=== PATIENT | female | born 1990 | race Caucasian/White ===

== ENCOUNTER 2016-07-06 17:51 | Emergency (ER) | payer OTHER ==
[~2016-07-06] VITALS: Ht 172.7 cm; Wt 83.9 kg
[~2016-07-06 17:51] MED LIST: AMOXICILLIN500 MG PO; BACTRIM DS 8001 TA1 PO; FLEXERIL5 MG PO; MOTRIN800 MG PO; Motrin,Rufen800 MG PO; NAPROSYN500 MG PO; NKHM; NORCO 325 MG-51 TAB PO; OMNICEF300 MG PO; PERCOCET 325 MG1 TA7 PO; PHENERGAN25 MG RC; PREDNISONE20 MG PO; ROBITUSSIN AC 110 ML PO; TRAMADOL HCL50 MG PO; VICODIN 5/500 505 MG PO; ZITHROMAX250 MG PO; ZYRTEC10 MG PO; [UNRECOGNIZED DRUG - CODE] IU
[2016-07-06 18:25] LABS: BASO # 0.1 10*3/uL (0.0-0.1); BASO % 0.6 % (0.0-1.0); EOS # 0.3 10*3/uL (0.0-0.4); EOS % 3.3 % (1.0-4.0); HEMATOCRIT 39.1 % (37.0-47.0); HEMOGLOBIN 12.7 g/dl (12.0-16.0); IG # 0.1 10*3/uL (0.0-0.1); LYMPH # 2.3 10*3/uL (1.3-4.4); MEAN CELL VOLUME 89.1 fl (81.0-99.0); MEAN CORPUSCULAR HGB 28.9 pg (27.0-31.0); MEAN CORPUSCULAR HGB CONC 32.5 g/dl (33.0-37.0); MONO # 0.5 10*3/uL (0.1-1.0); MONO % 5.4 % (3.0-9.0); NEUT # 5.6 10*3/uL (2.3-7.9); NEUT % 63.9 % (47.0-73.0); PLATELET COUNT AUTOMATED 298 10*3/uL (130-400); RED BLOOD COUNT 4.39 10*6/uL (4.10-5.10); RED CELL DISTRI WIDTH 13.2 % (0-14.5); WHITE BLOOD COUNT 8.8 10*3/uL (4.8-10.8)
[2016-07-06 18:37] LABS: BILIRUBIN NEGATIVE (NEGATIVE); BLOOD TRACE-LYSED (NEGATIVE); CLARITY CLEAR (CLEAR); COLOR YELLOW (YELLOW); GLUCOSE NEGATIVE (NEGATIVE); KETONE NEGATIVE (NEGATIVE); LEUKO ESTERASE NEGATIVE (NEGATIVE); NITRITE NEGATIVE (NEGATIVE); PH 6.5 (5.0-9.0); PROTEIN NEGATIVE (NEGATIVE); SPECIFIC GRAVITY 1.025 (1.005-1.030)
[2016-07-06 18:39] LABS: ALBUMIN 3.5 gm/dl (3.1-4.5); ALKALINE PHOSPHATASE 88 U/L (45-117); BILIRUBIN, TOTAL 0.3 mg/dl (0.2-1.0); BUN 15 mg/dl (7-24); CARBON DIOXIDE 26 mmol/L (21-32); CHLORIDE 106 mmol/L (98-107); EST GLOM FILT AFRICAN AMERICAN > 60 ml/min; GLUCOSE 87 mg/dL (65-99); POTASSIUM 4.1 mmol/L (3.5-5.1); SGOT/AST 17 IU/L (3-35); SGPT/ALT 25 U/L (12-78); SODIUM 142 mmol/L (136-145); TOTAL PROTEIN 7.8 gm/dL (6.4-8.2)
[2016-07-06 18:49] LABS: BACTERIA 1+; EPITHELIAL CELLS 30-35; URINE REFLEX COMMENT YES (NO); WBC 0-2 wbc/hpf (0-5)
[2016-07-06] MEDS ORDERED: NAPROSYN500 MG PO (18:52)
== END 2016-07-06 19:09 | disposition home or self-care (01) ==
LOC: ED 17:51
PROVIDERS: Nurse Practitioner Family
DX: R10.30 Lower abdominal pain, unspecified (principal)

== ENCOUNTER 2016-08-15 21:36 | Emergency (ER) | payer OTHER ==
[~2016-08-15] VITALS: Ht 172.7 cm; Wt 97.5 kg
== END 2016-08-15 23:40 | disposition home or self-care (01) ==
LOC: ED 21:36
DX: S93.402A Sprain of unspecified ligament of left ankle, initial encounter (principal); M25.571 Pain in right ankle and joints of right foot; W18.39XA Other fall on same level, initial encounter; Y93.9 Activity, unspecified; Y92.9 Unspecified place or not applicable; Y99.9 Unspecified external cause status

== ENCOUNTER 2017-03-04 18:17 | Emergency (ER) | payer OTHER ==
[~2017-03-04] VITALS: Ht 172.7 cm; Wt 94.8 kg
[2017-03-04 18:58] LABS: BASO # 0.1 10*3/uL (0.0-0.1); BASO % 0.6 % (0.0-1.0); EOS # 0.3 10*3/uL (0.0-0.4); EOS % 3.2 % (1.0-4.0); HEMATOCRIT 36.3 % (37.0-47.0); HEMOGLOBIN 10.4 g/dl (12.0-16.0); LYMPH # 2.9 10*3/uL (1.3-4.4); LYMPH % 30.9 % (27.0-41.0); MEAN CELL VOLUME 75.2 fl (81.0-99.0); MEAN CORPUSCULAR HGB 21.5 pg (27.0-31.0); MEAN CORPUSCULAR HGB CONC 28.7 g/dl (33.0-37.0); MEAN PLATELET VOLUME 10.7 fl (9.6-12.3); MONO # 0.4 10*3/uL (0.1-1.0); MONO % 3.9 % (3.0-9.0); NEUT # 5.6 10*3/uL (2.3-7.9); NEUT % 60.3 % (47.0-73.0); PLATELET COUNT AUTOMATED 372 10*3/uL (130-400); RED BLOOD COUNT 4.83 10*6/uL (4.10-5.10); RED CELL DISTRI WIDTH 17.8 % (0-14.5); WHITE BLOOD COUNT 9.3 10*3/uL (4.8-10.8)
[2017-03-04 19:08] LABS: ACT PARTIAL THROMBO TIME 22.9 SECONDS (20.8-31.5); INTERNATIONAL NORM RATIO 0.9 (2.0-3.5)
[2017-03-04 19:15] LABS: ALBUMIN 3.7 gm/dl (3.1-4.5); ALKALINE PHOSPHATASE 116 U/L (45-117); BUN 11 mg/dl (7-24); CHLORIDE 104 mmol/L (98-107); CREATININE 0.86 mg/dL (0.55-1.02); POTASSIUM 3.9 mmol/L (3.5-5.1); SGOT/AST 11 IU/L (3-35); SGPT/ALT 24 U/L (12-78); SODIUM 136 mmol/L (136-145); TOTAL PROTEIN 8.4 gm/dL (6.4-8.2)
[2017-03-04 19:19] LABS: TROPONIN I < 0.015 ng/ml (<0.045)
[2017-03-04] MEDS ORDERED: NAPROSYN500 MG PO (21:05)
== END 2017-03-04 23:39 | disposition home or self-care (01) ==
LOC: ED 18:17
PROVIDERS: Emergency Medicine
DX: R07.9 Chest pain, unspecified (principal); F17.200 Nicotine dependence, unspecified, uncomplicated

== ENCOUNTER 2017-12-10 22:22 | Emergency (ER) | payer OTHER ==
[~2017-12-10] VITALS: Ht 172.7 cm; Wt 111.6 kg
[2017-12-10] MEDS ORDERED: SEROQUEL25 MG PO (22:27)
[2017-12-10] MEDS ORDERED: PROZAC10 MG PO (22:27)
[2017-12-10] MEDS ORDERED: Motrin,Rufen800 MG PO (23:55)
== END 2017-12-11 00:12 | disposition home or self-care (01) ==
LOC: ED 22:22
DX: S20.212A Contusion of left front wall of thorax, initial encounter (principal); F17.200 Nicotine dependence, unspecified, uncomplicated; Z79.899 Other long term (current) drug therapy; Y04.2XXA Assault by strike against or bumped into by another person, initial encounter; Y93.89 Activity, other specified; Y92.89 Other specified places as the place of occurrence of the external cause; Y99.8 Other external cause status

== ENCOUNTER → 2018-03-08 | Outpatient (CLI) | payer OTHER ==
[~2018-03-08] MED LIST changes: +PROZAC10 MG PO; +SEROQUEL25 MG PO
== END | disposition home or self-care (01) ==
LOC: US 13:56
DX: N93.9 Abnormal uterine and vaginal bleeding, unspecified (principal)

== ENCOUNTER 2018-07-27 09:32 | Emergency (ER) | payer OTHER ==
[~2018-07-27] VITALS: Ht 172.7 cm; Wt 95.3 kg
== END 2018-07-27 09:51 | disposition home or self-care (01) ==
LOC: ED 09:32
DX: Z32.02 Encounter for pregnancy test, result negative (principal); Z79.899 Other long term (current) drug therapy

== ENCOUNTER 2018-09-28 23:02 | Emergency (ER) | payer OTHER ==
[~2018-09-28] VITALS: Ht 172.7 cm; Wt 108.9 kg
[2018-09-28] MEDS ORDERED: PREDNISONE20 M1 PO (23:06)
== END 2018-09-28 23:25 | disposition hospice, home (50) ==
LOC: ED 23:02
DX: L23.7 Allergic contact dermatitis due to plants, except food (principal); Z79.899 Other long term (current) drug therapy

== ENCOUNTER 2018-12-03 06:58 | Emergency (ER) | payer OTHER ==
[~2018-12-03] VITALS: Ht 172.7 cm; Wt 104.8 kg
[~2018-12-03 06:58] MED LIST changes: +PREDNISONE20 M1 PO
[2018-12-03] MEDS ORDERED: CYCLOBENZAPRINE10 MG PO (08:22)
[2018-12-03] MEDS ORDERED: PREDNISONE50 MG PO (08:22)
[2018-12-03] MEDS ORDERED: NORCO 5-325 TA1 EACH PO (08:22)
== END 2018-12-03 08:25 | disposition home or self-care (01) ==
LOC: ED 06:58
DX: S39.012A Strain of muscle, fascia and tendon of lower back, initial encounter (principal); Z79.899 Other long term (current) drug therapy; X58.XXXA Exposure to other specified factors, initial encounter; Y93.89 Activity, other specified; Y92.89 Other specified places as the place of occurrence of the external cause; Y99.0 Civilian activity done for income or pay

== ENCOUNTER 2018-12-22 12:42 | Emergency (ER) | payer OTHER ==
[~2018-12-22] VITALS: Ht 172.7 cm; Wt 114.8 kg
[~2018-12-22 12:42] MED LIST changes: +CYCLOBENZAPRINE10 MG PO; +NORCO 5-325 TA1 EACH PO; +PREDNISONE50 MG PO
[2018-12-22] MEDS ORDERED: CEPHALEXIN500 M1 PO (13:07)
[2018-12-22] MEDS ORDERED: NAPROSYN500 MG PO (13:07)
== END 2018-12-22 13:17 | disposition home or self-care (01) ==
LOC: ED 12:42
DX: L02.415 Cutaneous abscess of right lower limb (principal); Z79.899 Other long term (current) drug therapy

== ENCOUNTER 2019-02-24 23:02 | Emergency (ER) | payer OTHER ==
[~2019-02-24] VITALS: Ht 172.7 cm; Wt 101.6 kg
[~2019-02-24 23:02] MED LIST changes: +CEPHALEXIN500 M1 PO
[2019-02-25] MEDS ORDERED: CYCLOBENZAPRINE5 M3 PO (01:11)
[2019-02-25] MEDS ORDERED: MEDROL DOSEPAK4 MG PO (01:11)
== END 2019-02-25 01:29 | disposition home or self-care (01) ==
LOC: ED 23:02
DX: M54.42 Lumbago with sciatica, left side (principal); M54.41 Lumbago with sciatica, right side; Z79.2 Long term (current) use of antibiotics; Z79.899 Other long term (current) drug therapy

== ENCOUNTER 2019-04-06 10:06 | Emergency (ER) | payer SELFPAY ==
[~2019-04-06] VITALS: Ht 172.7 cm; Wt 111.1 kg
[~2019-04-06 10:06] MED LIST changes: +CYCLOBENZAPRINE5 M3 PO; +MEDROL DOSEPAK4 MG PO
[2019-04-06] MEDS ORDERED: ZYRTEC10 MG PO (11:04)
[2019-04-06] MEDS ORDERED: ROBITUSSIN DM 105 ML PO (11:04)
[2019-04-06] MEDS ORDERED: ZOFRAN4 MG PO (11:04)
== END 2019-04-06 11:08 | disposition home or self-care (01) ==
LOC: ED 10:06
DX: J06.9 Acute upper respiratory infection, unspecified (principal); Z79.899 Other long term (current) drug therapy

== ENCOUNTER 2019-05-22 06:19 | Emergency (ER) | payer SELFPAY ==
[~2019-05-22] VITALS: Ht 172.7 cm; Wt 107.0 kg
[~2019-05-22 06:19] MED LIST changes: +ROBITUSSIN DM 105 ML PO; +ZOFRAN4 MG PO
[2019-05-22] MEDS ORDERED: AMOXICILLIN875 MG PO (07:27)
[2019-05-22] MEDS ORDERED: Motrin,Rufen800 MG PO (07:27)
== END 2019-05-22 07:50 | disposition home or self-care (01) ==
LOC: ED 06:19
DX: K08.89 Other specified disorders of teeth and supporting structures (principal); Z79.2 Long term (current) use of antibiotics; Z79.899 Other long term (current) drug therapy

== ENCOUNTER 2019-09-27 17:49 | Emergency (ER) | payer SELFPAY ==
[~2019-09-27] VITALS: Wt 113.4 kg
[~2019-09-27 17:49] MED LIST changes: +AMOXICILLIN875 MG PO
[2019-09-27] MEDS ORDERED: MEDROL DOSEPAK4 MG PO (18:37)
== END 2019-09-27 18:38 | disposition home or self-care (01) ==
LOC: ED 17:49
DX: T78.40XA Allergy, unspecified, initial encounter (principal); Z79.899 Other long term (current) drug therapy; Z91.018 Allergy to other foods; X58.XXXA Exposure to other specified factors, initial encounter

== ENCOUNTER 2019-12-31 17:04 | Emergency (ER) | payer SELFPAY ==
[~2019-12-31] VITALS: Ht 172.7 cm; Wt 102.1 kg
[2019-12-31] MEDS ORDERED: DOXYCYCLINE100 M3 PO (18:22)
[2019-12-31] MEDS ORDERED: IBUPROFEN600 MG PO (18:22)
== END 2019-12-31 18:40 | disposition home or self-care (01) ==
LOC: ED 17:04
DX: L02.415 Cutaneous abscess of right lower limb (principal); Z79.899 Other long term (current) drug therapy

== ENCOUNTER 2020-09-27 20:48 | Emergency (ER) | payer SELFPAY ==
[~2020-09-27] VITALS: Ht 172.7 cm; Wt 112.5 kg
[~2020-09-27 20:48] MED LIST changes: +DOXYCYCLINE100 M3 PO; +IBUPROFEN600 MG PO
== END 2020-09-28 00:08 | disposition home or self-care (01) ==
LOC: ED 20:48
DX: R51.9 Headache, unspecified (principal); Z98.890 Other specified postprocedural states; Z79.899 Other long term (current) drug therapy; Z88.6 Allergy status to analgesic agent; Z88.8 Allergy status to other drugs, medicaments and biological substances

== ENCOUNTER 2020-10-03 06:59 | Emergency (ER) | payer SELFPAY ==
[~2020-10-03] VITALS: Ht 172.7 cm; Wt 95.3 kg
== END 2020-10-03 10:13 | disposition home or self-care (01) ==
LOC: ED 06:59
DX: R51.9 Headache, unspecified (principal); Z88.6 Allergy status to analgesic agent; Z91.018 Allergy to other foods; Z88.8 Allergy status to other drugs, medicaments and biological substances; Z98.890 Other specified postprocedural states

== ENCOUNTER 2020-12-06 21:21 | Emergency (ER) | payer SELFPAY ==
[~2020-12-06] VITALS: Ht 172.7 cm; Wt 99.8 kg
== END 2020-12-07 02:37 | disposition home or self-care (01) ==
LOC: ED 21:21
DX: J06.9 Acute upper respiratory infection, unspecified (principal); Z20.822 Contact with and (suspected) exposure to COVID-19; Z88.6 Allergy status to analgesic agent; Z88.8 Allergy status to other drugs, medicaments and biological substances; Z91.018 Allergy to other foods

== ENCOUNTER 2021-07-11 01:37 | Emergency (ER) | payer SELFPAY ==
[~2021-07-11] VITALS: Ht 172.7 cm; Wt 117.9 kg
== END 2021-07-11 05:05 | disposition home or self-care (01) ==
LOC: ED 01:37
DX: G44.009 Cluster headache syndrome, unspecified, not intractable (principal); Z88.8 Allergy status to other drugs, medicaments and biological substances; Z98.890 Other specified postprocedural states; F17.200 Nicotine dependence, unspecified, uncomplicated

== ENCOUNTER 2022-05-04 20:19 | Emergency (ER) | payer OTHER ==
[~2022-05-04] VITALS: Ht 172.7 cm; Wt 108.9 kg
[2022-05-04] MEDS ORDERED: NAPROSYN500 MG PO (21:45)
== END 2022-05-04 22:04 | disposition home or self-care (01) ==
LOC: ED 20:19
DX: S83.91XA Sprain of unspecified site of right knee, initial encounter (principal); Z88.5 Allergy status to narcotic agent; Z91.018 Allergy to other foods; Z88.8 Allergy status to other drugs, medicaments and biological substances; Z98.890 Other specified postprocedural states; X50.1XXA Overexertion from prolonged static or awkward postures, initial encounter; Y93.9 Activity, unspecified; Y92.89 Other specified places as the place of occurrence of the external cause; Y99.8 Other external cause status

== ENCOUNTER → 2022-08-04 | Outpatient (CLI) | payer OTHER | END | disposition home or self-care (01) | LOC: MRI 01:17 | PROVIDERS: ATTEND Nurse Practitioner | DX: S83.011A Lateral subluxation of right patella, initial encounter (principal); M25.461 Effusion, right knee; M25.861 Other specified joint disorders, right knee; X58.XXXA Exposure to other specified factors, initial encounter; Y93.9 Activity, unspecified; Y92.89 Other specified places as the place of occurrence of the external cause; Y99.8 Other external cause status ==

== ENCOUNTER 2022-10-06 18:59 | Emergency (ER) | payer OTHER ==
[~2022-10-06] VITALS: Wt 133.8 kg
[2022-10-06] MEDS ORDERED: CEPHALEXIN500 M1 PO (20:33)
[2022-10-06] MEDS ORDERED: Bactroban Oint22 GM T (20:34)
== END 2022-10-06 20:45 | disposition home or self-care (01) ==
LOC: ED 18:59
DX: L03.116 Cellulitis of left lower limb (principal); Z88.6 Allergy status to analgesic agent; Z88.8 Allergy status to other drugs, medicaments and biological substances; Z91.018 Allergy to other foods; Z98.890 Other specified postprocedural states; Z87.891 Personal history of nicotine dependence

== ENCOUNTER → 2022-10-08 | Outpatient (CLI) | payer OTHER ==
[~2022-10-08] MED LIST changes: +Bactroban Oint22 GM T
== END | disposition home or self-care (01) ==
LOC: WOUNDCARE 12:16
PROVIDERS: ATTEND Nurse Practitioner Primary Care
DX: L89.893 Pressure ulcer of other site, stage 3 (principal); Z87.891 Personal history of nicotine dependence

== ENCOUNTER → 2022-10-14 | Outpatient (CLI) | payer OTHER | END | disposition home or self-care (01) | LOC: WOUNDCARE 00:13 | PROVIDERS: ATTEND Nurse Practitioner Family | DX: L89.893 Pressure ulcer of other site, stage 3 (principal); Z87.891 Personal history of nicotine dependence ==

== ENCOUNTER → 2022-10-21 | Outpatient (CLI) | payer OTHER | LOC: WOUNDCARE 01:47 | PROVIDERS: ATTEND Nurse Practitioner Family | DX: L89.893 Pressure ulcer of other site, stage 3 (principal); E66.9 Obesity, unspecified; Z68.38 Body mass index [BMI] 38.0-38.9, adult; Z87.891 Personal history of nicotine dependence ==

== ENCOUNTER 2022-12-13 20:49 | Emergency (ER) | payer OTHER ==
[~2022-12-13] VITALS: Ht 172.7 cm; Wt 116.1 kg
[2022-12-13] MEDS ORDERED: CALCIUM 600 MG1 EAC6 PO (20:59)
[2022-12-13] MEDS ORDERED: BUSPAR5 MG PO (21:00)
[2022-12-13] MEDS ORDERED: VERAPAMIL HYDRO80 MG PO (21:00)
[2022-12-13 21:16] LABS: BILIRUBIN Negative (Negative); BLOOD 1+ (Negative); CLARITY Turbid (Clear); COLOR Yellow (Yellow); GLUCOSE Negative (Negative); KETONE Negative (Negative); LEUKO ESTERASE Negative (Negative); NITRITE Negative (Negative); SPECIFIC GRAVITY >= 1.030 (1.001-1.030)
[2022-12-13 21:21] LABS: BASO # 0.1 10*3/uL (0.0-0.1); BASO % 0.6 % (0.0-1.0); EOS # 0.2 10*3/uL (0.0-0.4); EOS % 2.2 % (1.0-4.0); LYMPH # 3.2 10*3/uL (1.3-4.4); LYMPH % 33.1 % (27.0-41.0); MEAN CELL VOLUME 92.7 fl (81.0-99.0); MEAN CORPUSCULAR HGB 30.8 pg (27.0-31.0); MEAN CORPUSCULAR HGB CONC 33.2 g/dl (33.0-37.0); MEAN PLATELET VOLUME 10.4 fl (9.6-12.3); MONO # 0.6 10*3/uL (0.1-1.0); MONO % 6.2 % (3.0-9.0); NEUT # 5.4 10*3/uL (2.3-7.9); NEUT % 56.9 % (47.0-73.0); PLATELET COUNT AUTOMATED 292 10*3/uL (130-400); RED BLOOD COUNT 3.99 10*6/uL (4.10-5.10); RED CELL DISTRI WIDTH 13.2 % (0-14.5); WHITE BLOOD COUNT 9.5 10*3/uL (4.8-10.8)
[2022-12-13 21:23] LABS: BACTERIA 1+; CALCIUM OXALATE CRYSTALS 2+
[2022-12-13 21:41] LABS: ALKALINE PHOSPHATASE 77 U/L (46-116); BUN 7 mg/dl (9-23); CHLORIDE 109 mmol/L (98-107); POTASSIUM 3.6 mmol/L (3.4-5.1); SGPT/ALT 20 U/L (10-49); TOTAL PROTEIN 6.4 gm/dL (6.0-8.0)
[2022-12-13] MEDS ORDERED: ONDANSETRON4 MG SL (22:43)
[2022-12-13] MEDS ORDERED: NAPROSYN500 MG PO (22:43)
== END 2022-12-13 22:53 | disposition home or self-care (01) ==
LOC: ED 20:49
PROVIDERS: Internal Medicine; Nurse Practitioner Family
DX: S29.012A Strain of muscle and tendon of back wall of thorax, initial encounter (principal); R10.12 Left upper quadrant pain; Z88.8 Allergy status to other drugs, medicaments and biological substances; Z91.018 Allergy to other foods; Z79.899 Other long term (current) drug therapy; Z98.890 Other specified postprocedural states; X58.XXXA Exposure to other specified factors, initial encounter; Y93.89 Activity, other specified; Y92.89 Other specified places as the place of occurrence of the external cause; Y99.8 Other external cause status

== ENCOUNTER 2023-02-26 01:43 | Emergency (ER) | payer OTHER ==
[~2023-02-26] VITALS: Ht 172.7 cm; Wt 107.0 kg
[~2023-02-26 01:43] MED LIST changes: +BUSPAR5 MG PO; +CALCIUM 600 MG1 EAC6 PO; +ONDANSETRON4 MG SL; +VERAPAMIL HYDRO80 MG PO
== END 2023-02-26 03:00 | disposition home or self-care (01) ==
LOC: ED 01:43
DX: O03.9 Complete or unspecified spontaneous abortion without complication (principal); Z88.8 Allergy status to other drugs, medicaments and biological substances; Z91.018 Allergy to other foods; Z79.899 Other long term (current) drug therapy; Z98.890 Other specified postprocedural states; Z3A.09 9 weeks gestation of pregnancy

== ENCOUNTER 2023-06-13 00:49 | Emergency (ER) | payer OTHER ==
[~2023-06-13] VITALS: Ht 172.7 cm; Wt 112.5 kg
[2023-06-13] MEDS ORDERED: AMOX-CLAV 875-1 EACH PO (01:05)
[2023-06-13] MEDS ORDERED: Amoxicillin/Clavulanate Pota 875 MG TAB PO ONE (01:10)
== END 2023-06-13 01:09 | disposition home or self-care (01) ==
LOC: ED 00:49
DX: H66.93 Otitis media, unspecified, bilateral (principal); Z88.6 Allergy status to analgesic agent; Z88.8 Allergy status to other drugs, medicaments and biological substances; Z91.018 Allergy to other foods; Z98.890 Other specified postprocedural states

== ENCOUNTER 2023-08-25 07:28 | Emergency (ER) | payer OTHER ==
[~2023-08-25] VITALS: Ht 172.7 cm; Wt 97.1 kg
[~2023-08-25 07:28] MED LIST changes: +AMOX-CLAV 875-1 EACH PO
== END 2023-08-25 07:57 | disposition home or self-care (01) ==
LOC: ED 07:28
DX: H66.90 Otitis media, unspecified, unspecified ear (principal); R05.9 Cough, unspecified; J02.9 Acute pharyngitis, unspecified; Z88.8 Allergy status to other drugs, medicaments and biological substances; Z91.018 Allergy to other foods; Z79.899 Other long term (current) drug therapy; Z98.890 Other specified postprocedural states

== ENCOUNTER 2024-02-02 16:01 | Emergency (ER) | payer OTHER ==
[~2024-02-02] VITALS: Ht 172.7 cm; Wt 107.0 kg
[2024-02-02 16:57] LABS: BASO # 0.1 10*3/uL (0.0-0.1); BASO % 0.4 % (0.0-1.0); EOS # 0.1 10*3/uL (0.0-0.4); HEMATOCRIT 38.7 % (37.0-47.0); LYMPH # 1.9 10*3/uL (1.3-4.4); LYMPH % 16.7 % (27.0-41.0); MEAN CELL VOLUME 90.2 fl (81.0-99.0); MEAN CORPUSCULAR HGB 29.8 pg (27.0-31.0); MEAN CORPUSCULAR HGB CONC 33.1 g/dl (33.0-37.0); MEAN PLATELET VOLUME 10.6 fl (9.6-12.3); MONO # 0.9 10*3/uL (0.1-1.0); MONO % 7.4 % (3.0-9.0); NEUT # 8.6 10*3/uL (2.3-7.9); NEUT % 74.2 % (47.0-73.0); PLATELET COUNT AUTOMATED 239 10*3/uL (130-400); RED BLOOD COUNT 4.29 10*6/uL (4.10-5.10); WHITE BLOOD COUNT 11.6 10*3/uL (4.8-10.8)
[2024-02-02 17:27] LABS: BUN 13 mg/dl (9-23); CHLORIDE 110 mmol/L (98-107); POTASSIUM 3.7 mmol/L (3.4-5.1)
[2024-02-02] MEDS ORDERED: AVPAK AZITHROM250 MG PO (17:31)
[2024-02-02] MEDS ORDERED: MEDROL DOSEPAK4 MG PO (17:31)
== END 2024-02-02 17:39 | disposition home or self-care (01) ==
LOC: ED 16:01
PROVIDERS: Internal Medicine
DX: J40 Bronchitis, not specified as acute or chronic (principal); F17.290 Nicotine dependence, other tobacco product, uncomplicated; Z88.8 Allergy status to other drugs, medicaments and biological substances; Z91.018 Allergy to other foods; Z98.890 Other specified postprocedural states